=== PATIENT | male | born 1980 | race Caucasian/White ===

== ENCOUNTER 2018-01-13 10:52 | Outpatient (CLI) | payer BC, SELFPAY ==
[2018-01-13 13:15] LABS: Cholesterol 204 mg/dL (50-200); Glucose 95 mg/dL (70-100); HDL Cholesterol 41 mg/dL (40-60); LDL CHOLESTEROL 133 mg/dL (<100); Triglyceride 131 mg/dL (30-150)
== END 2018-01-13 11:12 ==
LOC: LBO 10:56 → LOS 12:53
PROVIDERS: PCP Emergency Medicine; Visit Provider Family Medicine
DX: Z00.00 Encounter for general adult medical examination without abnormal findings (principal); E66.3 Overweight
CPT/HCPCS: 36415; 80061; 82947; 83721

== ENCOUNTER 2018-07-17 08:40 | Outpatient (CLI) | payer BC, SELFPAY ==
[2018-07-17 13:37] LABS: ALT 31 U/L (12-78); AST 23 U/L (15-37); Albumin 3.9 g/dL (3.4-5.0); Alkaline Phosphatase 103 U/L (46-116); Anion Gap 11.4 mmol/L (3-11); BUN 16 mg/dL (7-18); Bilirubin, Total 0.4 mg/dL (0.2-1.0); CO2 26.6 mmol/L (21.0-32.0); CREATININE 1.16 mg/dL (0.70-1.30); Calcium 9.1 mg/dL (8.5-10.1); Chloride 102 mmol/L (98-107); Glucose 91 mg/dL (70-100); Potassium 4.4 mmol/L (3.5-5.1); Sodium 140 mmol/L (136-145); Total Protein 7.9 g/dL (6.4-8.2)
[2018-07-18 10:52] LABS: Hepatitis B Surface Ag Negative (NEGAT)
[2018-07-18 11:05] LABS: HIV-1/2 Ag & Ab Screen Negative (NEGAT); Hepatitis C Ab w Rflx HCV PCR Negative (NEGAT)
== END 2018-07-17 09:00 ==
PROVIDERS: PCP Emergency Medicine; Visit Provider Family Medicine
DX: W27.3XXA Contact with needle (sewing), initial encounter (principal); Z77.21 Contact with and (suspected) exposure to potentially hazardous body fluids; Z11.59 Encounter for screening for other viral diseases; Z11.4 Encounter for screening for human immunodeficiency virus [HIV]
CPT/HCPCS: 36415; 80053; 86803; 87340; 87389; 86704

== ENCOUNTER 2021-02-26 13:10 | Outpatient (REF) | payer SELFPAY ==
[2021-02-28 00:32] LABS: COVID-19 RT-PCR UVMMC Result Negative (Negative)
== END 2021-02-26 13:11 | disposition home or self-care (01) ==
LOC: LBN 13:10
PROVIDERS: PCP Emergency Medicine; Visit Provider Nurse Practitioner Family
DX: Z20.822 Contact with and (suspected) exposure to COVID-19 (principal)
CPT/HCPCS: U0003

== ENCOUNTER 2023-05-06 10:33 | Outpatient (CLI) | payer BC, SELFPAY ==
[2023-05-06 13:21] LABS: ALT 30 U/L (16-63); AST 17 U/L (15-37); Alkaline Phosphatase 97 U/L (46-116); Anion Gap 7.8 mmol/L (3-11); BUN 17 mg/dL (7-18); Bilirubin, Total 0.4 mg/dL (0.2-1.0); CO2 29.2 mmol/L (21.0-32.0); CREATININE 1.3 mg/dL (0.70-1.30); Calcium 9.3 mg/dL (8.5-10.1); Calculated LDL 112 mg/dL (<100); Chloride 104 mmol/L (98-107); Cholesterol 182 mg/dL (<200); Estimated GFR 69.47 (mL/min/1.73m2); Glucose 97 mg/dL (74-106); HDL Cholesterol 43 mg/dL (40-60); Potassium 4.1 mmol/L (3.5-5.1); Sodium 141 mmol/L (136-145); Total Protein 7.8 g/dL (6.4-8.2); Triglyceride 137 mg/dL (<150)
[2023-05-06 18:28] LABS: HIV-1/2 Ag & Ab Screen Negative (Negative)
[2023-05-06 18:35] LABS: Hepatitis C Ab w Rflx HCV PCR Negative (Negative)
== END 2023-05-06 10:34 | disposition home or self-care (01) ==
LOC: LOS 10:34
PROVIDERS: PCP Family Medicine; Visit Provider Family Medicine
DX: Z11.4 Encounter for screening for human immunodeficiency virus [HIV] (principal); Z00.00 Encounter for general adult medical examination without abnormal findings; Z13.6 Encounter for screening for cardiovascular disorders
CPT/HCPCS: 36415; 80053; 80061; 86803; 87389